=== PATIENT | female | born 1985 | race Two or more races ===

== ENCOUNTER → 2020-05-21 | Outpatient (CLI) | payer OTHER ==
--- NOTE | 2020-05-22 07:56 | KCIC ---
EXAM: XR CERVICAL SPINE 4-5V 05/21/2020 2:34 PM CLINICAL INDICATION: Neck pain COMPARISON: None TECHNIQUE: 5 views of the cervical spine FINDINGS: No acute fracture or listhesis. There is slight reversal of lordosis. Disc spaces are main tained. Facet joints are normal. There is no bony foraminal narrowing. Prevertebral soft tissue is no rmal. IMPRESSION: No acute osseous abnormality or degenerative disc disease. Electronically signed by: Rebecca Shannon MD (05/22/2020 7:54 AM) [id number]
== END ==
LOC: KCIC 14:13
DX: M40.292 Other kyphosis, cervical region (principal); M99.01 Segmental and somatic dysfunction of cervical region
CPT/HCPCS: 72050